=== PATIENT | male | born 1940 ===

== ENCOUNTER → 2018-08-06 | Outpatient (CLI) | payer MEDICARE, OTHER ==
[~2018-08-06] MED LIST: CEPH500 PO; HYDCHL25 PO; LEVSOD150 PO; METO50 PO; SIMV40 PO
== END ==
LOC: LAB SHORT 12:34 → LAB 12:34
DX: R31.9 Hematuria, unspecified (principal); R10.84 Generalized abdominal pain; R30.0 Dysuria
CPT/HCPCS: 87086